=== PATIENT | male | born 1965 | race African-American/Black ===

== ENCOUNTER 2017-07-12 13:27 | Emergency (ER) | payer SELFPAY ==
[~2017-07-12] VITALS: Ht 182.9 cm; Wt 122.0 kg
[2017-07-12 13:48] VITALS: BP 126/66
--- NOTE | 2017-07-12 13:50 | NUR ---
PT PLACED IN BED 11.
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
--- NOTE | 2017-07-12 15:15 | NUR ---
PT TAKEN OFF THE UNIT TO XRAY VIA [facility]
--- NOTE | 2017-07-12 15:55 | NUR ---
PT discharged with v/s stable. Written and verbal after care instructions given and explained. Patient alert, oriented and verbalized understanding of instructions. Ambulatory with steady gait. All questions addressed prior to discharge. ID band removed. Patient advised to follow up with PMD. Rx of GABAPENTIN, MOTRIN, AND BACLOFEN given. Patient educated on indication of medication including possible reaction and side effects. Opportunity to ask questions provided and answered.
[2017-07-12 16:00] VITALS: BP 126/94
== END 2017-07-12 16:00 | disposition home or self-care (01) ==
LOC: MED 13:27
DX: M25.50 Pain in unspecified joint (principal)
CPT/HCPCS: 36415; 73030; 73080; 73502; 73562; 87081; 87804; 99285